=== PATIENT | male | born 1975 | race Caucasian/White ===

== ENCOUNTER 2020-06-11 14:05 | Emergency (ER) | payer MEDICARE, MEDICAID, SELFPAY ==
[2020-06-11 14:39] VITALS: BP 185/103; PULSE 110; RESP 23; TEMP 37.1; O2SAT 68; BMI 22.5
[2020-06-11 14:43] VITALS: O2SAT 95
--- NOTE | 2020-06-11 15:08 | XR_ITS ---
EXAMINATION: XR CHEST CLINICAL INFORMATION: Hypoxia COMPARISON: Chest radiographs 02/06/2020, 02/05/2020, 02/04/2020 TECHNIQUE: Portable upright AP view of the chest was obtained. FINDINGS: There are low lung volumes. Mild elevation right hemidiaphragm similar to prior studies. There are diffuse airspace opacities throughout the left lung. No lobar or segmental airspace consolidation or groundglass opacities noted on the right. The costophrenic sulci are clear. No effusion. The heart is normal in size. The vascularity is normal. XR/XR chest 1V IMPRESSION: Diffuse airspace opacities left lung. No effusion.
--- NOTE | 2020-06-11 15:08 | ECG_ITS ---
Test Reason : NAUSEA Blood Pressure : / mmHG Vent. Rate : 109 BPM Atrial Rate : 109 BPM P-R Int : 124 ms QRS Dur : 076 ms QT Int : 374 ms P-R-T Axes : 052 043 204 degrees QTc Int : 503 ms Sinus tachycardia Possible Left atrial enlargement Left ventricular hypertrophy with repolarization abnormality Abnormal ECG When compared with ECG of 30-JAN-2020 14:03, ST now depressed in Lateral leads T wave inversion less evident in Lateral leads Referred By: Deena Hamilton Electronically Signed By:CATALINO MILLER
--- NOTE | 2020-06-11 15:10 | CT_ITS ---
EXAMINATION: CT HEAD WITHOUT CONTRAST CLINICAL INFORMATION: Slurred speech COMPARISON: None CT brain 01/30/2020 TECHNIQUE: Contiguous axial imaging was performed from the skull base to vertex without intravenous administration of contrast. This CT examination was performed using dose optimization techniques as appropriate, variously including the following: *Automated exposure control *Adjustment of mA and/or kV according to patient size (this includes techniques or standardized protocols for targeted exams where dose is matched to indication/reason for exam; i.e. extremities or head) *Use of iterative reconstruction technique DLP: 1721 mGy-cm FINDINGS: There is no acute intra-axial, extra axial bleed, masses or midline shift. There is no acute infarction in evolution. There is an left basal ganglia and right anterior limb internal capsule lacunar infarcts. The right anterior limb internal capsule infarct appears new compared to last study. There is edema or mass effect. Ribeiro to white matter differentiation is well preserved. No extra-axial fluid collections are identified. The ventricles are normal in size. There is no abnormal attenuation within the brain parenchyma. The osseous structures and soft tissues are normal. The mastoid air cells and visualized portions of the paranasal sinuses are well aerated. CT/CT head/brain wo con IMPRESSION: No acute intracranial process seen. There is a lacunar infarct left basal ganglia, unchanged to previous study. There is a lacunar infarct in the anterior limb right internal capsule which is new since the last study.
[2020-06-11 15:16] LABS: Glucose, Whole Blood 561 mg/dL (60-115)
--- NOTE | 2020-06-11 15:19 | ED_ITS ---
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 He also reports abdominal soreness from vomiting. He has been unable to eat so he has not been taking his insulin. He states he has not taken his other medications in some time (?months). He is a poor historian. He had an appointment yesterday for his chronic pain. He denies fever, chills, urinary symptoms, cough, SOB, M[place] or chest pain. No sick contacts. On arrival to the ER he was found to have an SpO2 68% on room air (AAO X3 but speech slurred) and glucose 500's. <JAVIER Hernandez - Last Filed: 06/11/20 19:55> MD elicited complaint: nausea and vomiting <JAVIER Hernandez Last Filed: 06/11/20 19:55> Pertinent past history: other (DM) <JAVIER Hernandez Last Filed: 06/11/20 19:55> Onset (ago): day(s) (2) <JAVIER Hernandez Last Filed: 06/11/20 19:55> Description of vomiting: food contents <JAVIER Hernandez Last Filed: 06/11/20 19:55> Associated nausea: Yes <JAVIER Hernandez - Last Filed: 06/11/20 19:55> Associated abdominal pain: Yes <JAVIER Hernandez - Last Filed: 06/11/20 19:55> Location of pain: diffuse <JAVIER Hernandez - Last Filed: 06/11/20 19:55> Radiation: diffuse <JAVIER Hernandez - Last Filed: 06/11/20 19:55> Pain consistency: intermittent <JAVIER Hernandez - Last Filed: 06/11/20 19:55> Severity: moderate <JAVIER Hernandez - Last Filed: 06/11/20 19:55> Quality: aching <JAVIER Hernandez - Last Filed: 06/11/20 19:55> Exacerbating factors: vomiting <JAVIER Hernandez Last Filed: 06/11/20 19:55> Associated symptoms: headaches, loss of appetite, malaise, nausea/vomiting and weakness <JAVIER Hernandez Last Filed: 06/11/20 19:55> Related Data Home medications: Home Medications Medication Instructions Recorded Confirmed gabapentin 600 mg tablet 600 mg PO TID tab 02/26/20 06/11/20 pen needle, diabetic 32 gauge x #50 ea 02/26/20 06/10/20 sumatriptan succinate 50 mg tablet 50 mg PO DAILY PRN tab 02/26/20 06/11/20 atorvastatin 40 mg tablet 40 mg PO DAILY 06/10/20 06/11/20 duloxetine 30 mg capsule,delayed 30 mg PO DAILY 06/10/20 06/11/20 release fenofibrate nanocrystallized 145 145 mg PO DAILY 06/10/20 06/11/20 mg tablet insulin regular hum U-500 conc 180 unit SUBCUT BEDTIME 06/11/20 06/11/20 [Humulin R U-500 (Conc) Kwikpen] insulin regular hum U-500 conc 210 unit SUBCUT DAILY 06/11/20 06/11/20 [Humulin R U-500 (Conc) Kwikpen] zolpidem 10 mg PO BEDTIME 06/11/20 06/11/20 Previous Rx's Medication Instructions Recorded hydrochlorothiazide 25 mg tablet 25 mg PO DAILY #90 tab 04/07/20 carvedilol 12.5 mg tablet 12.5 mg PO BID #180 tab 05/27/20 cyclobenzaprine 5 mg tablet 5 mg PO TID PRN #60 tab 05/27/20 oxycodone 5 mg tablet 5 mg PO Q6H PRN #120 tab 06/10/20 <JAVIER Hernandez - Last Filed: 06/11/20 19:55> Allergies/Adverse reactions: Allergies Allergy/AdvReac Type Severity Reaction Status Date / Time levofloxacin [From LEVAQUIN] Allergy Unknown REDNESS,ITC Verified 06/10/20 10:30 HY,SWOLLEN <JAVIER Hernandez - Last Filed: 06/11/20 19:55> Review of Systems Review of Systems: Constitutional: No Fever, No Chills ENT/Mouth: No sore throat, No Rhinorrhea, No Swallowing Difficulty Eyes: No Eye Pain, No Swelling, No Redness Cardiovascular: No Chest Pain, No SOB, No Orthopnea, No Edema Respiratory: + Cough, No Sputum, No Wheezing, No dyspnea Gastrointestinal: + Nausea, + Vomiting, No Diarrhea, + abdominal Pain, No Hematochezia, No Melena Genitourinary: No Dysuria, No Urinary Frequency, No Hematuria Musculoskeletal: + joint pain (chronic), + Myalgias (chronic) Skin: No Skin Lesions, No rash Neuro: No Weakness, No Numbness, No Dizziness, + Headache (chronic) Psych: No Anxiety/Panic, No Depression Heme/Lymph: No Bruising, No Lymphadenopathy Endocrine: No Polyuria, No Polydipsia <JAVIER Hernandez - Last Filed: 06/11/20 19:55> Gastrointestinal: Gastrointestinal: Reports nausea <JAVIER Hernandez - Last Filed: 06/11/20 19:55> [facility] Past Medical History Attestation statement: The following information was validated with the patient. <JAVIER Hernandez - Last Filed: 06/11/20 19:55> Source: old records reviewed <JAVIER Hernandez - Last Filed: 06/11/20 19:55> Medical History: Medical History (Updated 06/11/20 @ 19:16 by JAVIER Hernandez) Chronic pain CKD (chronic kidney disease) HTN (hypertension) IDDM (insulin dependent diabetes mellitus) Osteomyelitis PVD (peripheral vascular disease) <JAVIER Hernandez - Last Filed: 06/11/20 19:55> Surgical History: Surgical History Status post below knee amputation of right lower extremity Status post laser cataract surgery of right eye <JAVIER Hernandez - Last Filed: 06/11/20 19:55> Family History Family History: Family History Father Diabetes Mother Diabetes <JAVIER Hernandez - Last Filed: 06/11/20 19:55> Social History Social History: Social History Alcohol intake: never Smoking Status: Never smoker Smoked in Last 30 Days: No Use of substances other than those prescribed or required for medical reasons: No Advance Directives: No Advance Directives Information Provided: No <JAVIER Hernandez - Last Filed: 06/11/20 19:55> Physical Exam Vital Signs: Vital Signs: Last Vital Signs Temp 98.5 F 06/11/20 16:40 Pulse 116 H 06/11/20 18:00 Resp 26 H 06/11/20 16:40 BP 155/76 H 06/11/20 19:37 Pulse Ox 91 L 06/11/20 16:40 Body Mass Index 22.5 Appearance: Alert. Oriented X3. No acute distress. Head: scalp with diffuse thickened yellowish plaques Eyes: Pupils equal, round and reactive to light. ENT: Pharynx with dry mucus membranes: Neck: Normal inspection. Neck supple. CVS: tachycardic, regular rhythm. Pulses normal. Respiratory: No respiratory distress. Breath sounds course throughout left lung. Abdomen: Soft with mild diffuse tenderness. +BS x4 Skin: Skin warm and dry. Normal skin color. Normal skin turgor. No rashes. Extremities: s/p right BKA, no LE edema on the left lower extremity Neuro: Oriented X 3. No motor deficit. No sensory deficit. <JAVIER Hernandez - Last Filed: 06/11/20 19:55> Vital Signs: Last Vital Signs Temp 98.5 F 06/11/20 16:40 Pulse 116 H 06/11/20 18:00 Resp 26 H 06/11/20 16:40 BP 155/76 H 06/11/20 19:37 Pulse Ox 91 L 06/11/20 16:40 Body Mass Index 22.5 <Nissa Donis MD - Last Filed: 06/11/20 22:37> Course Course Course Narrative: 44 y/o male with multiple co-morbidities presenting with N/V and hyperglycemia, found to be profoundly hypoxic on arrival with slurred speech. Neuro exam is otherwise non-focal so this is likely directly related to hypoxia. Now improved. He denies respiratory complaints. He was placed on 3L NC with improvement in SpO2 94%. HR 110. He appears clinically dry. Glucose 500's. Will give 1L IVF and SC insulin now. Possible DKA given insulin non-compliance. Will get cultures, CXR, EKG. No nausea at this time. Will require admission. <JAVIER Hernandez - Last Filed: 06/11/20 19:55> 22:28 this is a 44-year-old male with history of diabetes presented today with nausea vomiting diarrhea seen initially by Dr. Camargo/JAVIER Shaffer, patient found to be in DKA with anion gap, patient also found to have a pneumonia beating sirs criteria. Patient was seen and evaluated in the emergency department by Dr. multani from ICU and because the scheme acute change on the EKG and elevated troponin he advised to be transferred to CCU at [facility], after multiple phone calls with (food inspector at [facility]), and (follow-up ICU at [facility]), and patient was accepted to intermediate care with Cardiology consult for possible cardiac catheterization (not emergently but could be urgently). Patient was given antibiotic, started on heparin drip, insulin drip. And will be transferred to [facility]. DKA is improving anion gap is closing and bicarb is normalizing. <Nissa Donis MD - Last Filed: 06/11/20 22:37> Reevaluation(s) Reevaluation #1: EKG with new ischemic changes. Patient denies chest pain or SOB at this time. No diaphoresis. Mild tachycardia persists. HR low 100's. Lab work pending. Upon review he had normal ECHO in Jan 2020. ASA ordered. CXR shows diffuse patchy opacities throughout the left lung. ?aspiration. Given profound hypoxia will treat with Zosyn and get CT scan for further evaluation. <JAVIER Hernandez - Last Filed: 06/11/20 19:55> Reevaluation #2: Received critical results of troponin 2006, glucose 624, HUNG on CKD with BUN/Cr 38/2.5 (baseline 56/1.84) as well as lactic acid of 2.9, with bicarb of 20 and anion gap of 25. VBG showing pH 7.33. Small acetone present consistent with mild DKA. He has been given 12 units of SQ insulin and 1L IVF infusing. Repeat glucose decreased to 480. Will hold off on IV insulin for now and trend glucose closely. Dr. Otto has been TT at 17:19, awaiting recs. <JAVIER Hernandez - Last Filed: 06/11/20 19:55> Reevaluation #3: 17:40 - Dr. Otto recommending ASA, heparin gtt. Orders placed. BP 190/100 with HR 100's, IV lopressor ordered. <JAVIER Hernandez - Last Filed: 06/11/20 19:55> Additional Reevaluation(s): Case was discussed with Dr. Multani at 17:55 pm - he came to the bedside and evaluated the patient. Limited ECHO was performed without any obvious wall motion abnormalities present however unable to visualize the lateral wall. Patient's ischemic changes are consistent with lateral ischemia. Given the high concern for acute ischemia, patient's medical complexity and multiple risk factors Dr. Multani is recommending transfer to [facility] for possible cardiac catheterization. Transfer line called at 6:30pm. Spoke with Dr. Soto Cardiology from [facility] - he is recommending speaking with MICU. Glucose slowly improving- now 465. Will give additional 8 units SQ insulin. Repeat chemistry and troponin ordered as well as CK per Dr. Soto recs. 19:45 - continue to await MICU call back, going on 45 minutes. Transfer line called 2x and page resent. EKG repeated and unchanged. <JAVIER Hernandez - Last Filed: 06/11/20 19:55> Consultations Consultation #1: Dr. Otto (Cardiology) 17:20 pm <JAVIER Hernandez - Last Filed: 06/11/20 19:55> Consultation #2: Dr. Multani (ICU/Cardiology) 6pm. <JAVIER Hernandez - Last Filed: 06/11/20 19:55> MDM - Nausea/Vomiting/Diarrhea Lab Data Result diagrams: : 06/11/20 16:31 06/11/20 19:53 <JAVIER Hernandez - Last Filed: 06/11/20 19:55> Labs: Lab Results 06/11/20 06/11/20 06/11/20 Range/Units 15:13 16:30 16:30 WBC (4.8-10.8) X10*3/uL RBC (4.60-5.80) X10*6/uL Hgb (14.0-18.0) g/dl Hct (42-52) % MCV (80-98) fL MCH (27.0-33.0) pg MCHC (31.0-36.0) g/dl RDW (11.0-16.0) % Plt Count (160-400) X10*3/uL MPV (9.4-12.4) fL Immature Gran % (Auto) (0.0-0.4) % Neut % (Auto) (45-73) % Lymph % (Auto) (20-40) % [place] % (Auto) (2-11) % Eos % (Auto) (0-4) % Baso % (Auto) (0-2) % Lymph # (Auto) (1.2-4.9) X10*3/uL [place] # (Auto) (0.1-1.2) X10*3/uL Eos # (Auto) (0.0-0.4) X10*3/uL Baso # (Auto) (0.0-0.2) X10*3/uL Abs Immat Gran (auto) (0.00-0.03) X10*3/uL Absolute Neuts (auto) (2.0-8.3) X10*3/uL Absolute Nucleated RBC (0.0-0.012) X10*3/uL Nucleated RBC % (auto) (0.0-0.2) /100WBC PT (10.8-13.0) SEC INR (0.9-1.1) APTT (24.1-38.0) SEC Hold Blue Top VBG pH 7.33 (7.32-7.43) VBG pCO2 42 mmHg VBG pO2 45 mmHg VBG HCO3 22 mmol/L VBG O2 Saturation 71.0 % VBG Base Excess -2.9 mmol/L Sodium (135-145) mmol/L Potassium (3.3-5.1) mmol/l Chloride (96-108) mmol/L Carbon Dioxide (22-29) mmol/L Anion Gap (12-20) BUN (9-16) mg/dL Creatinine (0.5-1.4) mg/dL Estim Creat Clear Calc Estimated GFR POC Glucose 561 H* (60-115) mg/dL Random Glucose (60-115) mg/dL Lactic Acid (0.5-2.0) mmol/L Lactic Acid Fup @ 2Hr (0.5-2.0) mmol/L Calcium (8.4-10.2) mg/dL Magnesium (1.6-2.6) mg/dL Total Bilirubin (0.0-1.0) mg/dL Direct Bilirubin (0.0-0.5) mg/dL AST (5-37) U/L ALT (0-40) U/L Alkaline Phosphatase (39-117) U/L Total Creatine Kinase (38-174) U/L Troponin I High Sens (<3.5-35.0) ng/L C-Reactive Protein (< or = 0.50) mg/dL B-Natriuretic Peptide (<100) pg/mL Total Protein (6.5-8.0) g/dL Albumin (3.5-5.0) g/dL Lipase (8-78) U/L Procalcitonin ng/mL Urine Color Urine Appearance Urine pH (5.0-8.0) Ur Specific [place] (1.005-1.025) Urine Protein (NEG-TRACE) MG/DL Urine Glucose (UA) (NEG) MG/DL Urine Ketones (NEG) MG/DL Urine Blood (NEG) Urine Nitrite (NEG) Ur Leukocyte Esterase (NEG) Urine RBC (0) /HPF Urine WBC (0-4) /HPF Ur Squamous Epith Cells /LPF Urine Bacteria /LPF Hyaline Casts /LPF Granular Casts /LPF Acetone, Qual Small H (Negative) Coronavirus (PCR) (Negative) Influenza Type A (PCR) (Negative) Influenza Type B (PCR) (Negative) RSV RNA Qual (PCR) (Negative) 06/11/20 06/11/20 06/11/20 Range/Units 16:31 16:31 16:31 WBC 14.2 H (4.8-10.8) X10*3/uL RBC 4.53 L (4.60-5.80) X10*6/uL Hgb 12.9 L (14.0-18.0) g/dl Hct 38.8 L (42-52) % MCV 85.7 (80-98) fL MCH 28.5 (27.0-33.0) pg MCHC 33.2 (31.0-36.0) g/dl RDW 14.1 (11.0-16.0) % Plt Count 274 (160-400) X10*3/uL MPV 10.4 (9.4-12.4) fL Immature Gran % (Auto) 1.2 H (0.0-0.4) % Neut % (Auto) 83.9 H (45-73) % Lymph % (Auto) 9.6 L (20-40) % [place] % (Auto) 4.9 (2-11) % Eos % (Auto) 0.0 (0-4) % Baso % (Auto) 0.4 (0-2) % Lymph # (Auto) 1.4 (1.2-4.9) X10*3/uL [place] # (Auto) 0.7 (0.1-1.2) X10*3/uL Eos # (Auto) 0.0 (0.0-0.4) X10*3/uL Baso # (Auto) 0.1 (0.0-0.2) X10*3/uL Abs Immat Gran (auto) 0.17 H (0.00-0.03) X10*3/uL Absolute Neuts (auto) 11.9 H (2.0-8.3) X10*3/uL Absolute Nucleated RBC 0.000 (0.0-0.012) X10*3/uL Nucleated RBC % (auto) 0.0 (0.0-0.2) /100WBC PT 13.5 H (10.8-13.0) SEC INR 1.1 (0.9-1.1) APTT 35.6 (24.1-38.0) SEC Hold Blue Top SEE NOTE VBG pH (7.32-7.43) VBG pCO2 mmHg VBG pO2 mmHg VBG HCO3 mmol/L VBG O2 Saturation % VBG Base Excess mmol/L Sodium 134 L (135-145) mmol/L Potassium 4.6 (3.3-5.1) mmol/l Chloride 94 L (96-108) mmol/L Carbon Dioxide 20 L (22-29) mmol/L Anion Gap 25 H (12-20) BUN 38 H (9-16) mg/dL Creatinine 2.50 H (0.5-1.4) mg/dL Estim Creat Clear Calc 44.4 Estimated GFR 28 POC Glucose (60-115) mg/dL Random Glucose 624 H* (60-115) mg/dL Lactic Acid (0.5-2.0) mmol/L Lactic Acid Fup @ 2Hr (0.5-2.0) mmol/L Calcium 8.0 L (8.4-10.2) mg/dL Magnesium 1.6 (1.6-2.6) mg/dL Total Bilirubin 0.6 (0.0-1.0) mg/dL Direct Bilirubin 0.3 (0.0-0.5) mg/dL AST 23 (5-37) U/L ALT 26 (0-40) U/L Alkaline Phosphatase 85 (39-117) U/L Total Creatine Kinase (38-174) U/L Troponin I High Sens (<3.5-35.0) ng/L C-Reactive Protein 25.46 H (< or = 0.50) mg/dL B-Natriuretic Peptide (<100) pg/mL Total Protein 6.3 L (6.5-8.0) g/dL Albumin 3.8 (3.5-5.0) g/dL Lipase 7 L (8-78) U/L Procalcitonin ng/mL Urine Color Urine Appearance Urine pH (5.0-8.0) Ur Specific [place] (1.005-1.025) Urine Protein (NEG-TRACE) MG/DL Urine Glucose (UA) (NEG) MG/DL Urine Ketones (NEG) MG/DL Urine Blood (NEG) Urine Nitrite (NEG) Ur Leukocyte Esterase (NEG) Urine RBC (0) /HPF Urine WBC (0-4) /HPF Ur Squamous Epith Cells /LPF Urine Bacteria /LPF Hyaline Casts /LPF Granular Casts /LPF Acetone, Qual (Negative) Coronavirus (PCR) (Negative) Influenza Type A (PCR) (Negative) Influenza Type B (PCR) (Negative) RSV RNA Qual (PCR) (Negative) 06/11/20 06/11/20 06/11/20 Range/Units 16:31 16:31 16:31 WBC (4.8-10.8) X10*3/uL RBC (4.60-5.80) X10*6/uL Hgb (14.0-18.0) g/dl Hct (42-52) % MCV (80-98) fL MCH (27.0-33.0) pg MCHC (31.0-36.0) g/dl RDW (11.0-16.0) % Plt Count (160-400) X10*3/uL MPV (9.4-12.4) fL Immature Gran % (Auto) (0.0-0.4) % Neut % (Auto) (45-73) % Lymph % (Auto) (20-40) % [place] % (Auto) (2-11) % Eos % (Auto) (0-4) % Baso % (Auto) (0-2) % Lymph # (Auto) (1.2-4.9) X10*3/uL [place] # (Auto) (0.1-1.2) X10*3/uL Eos # (Auto) (0.0-0.4) X10*3/uL Baso # (Auto) (0.0-0.2) X10*3/uL Abs Immat Gran (auto) (0.00-0.03) X10*3/uL Absolute Neuts (auto) (2.0-8.3) X10*3/uL Absolute Nucleated RBC (0.0-0.012) X10*3/uL Nucleated RBC % (auto) (0.0-0.2) /100WBC PT (10.8-13.0) SEC INR (0.9-1.1) APTT (24.1-38.0) SEC Hold Blue Top VBG pH (7.32-7.43) VBG pCO2 mmHg VBG pO2 mmHg VBG HCO3 mmol/L VBG O2 Saturation % VBG Base Excess mmol/L Sodium (135-145) mmol/L Potassium (3.3-5.1) mmol/l Chloride (96-108) mmol/L Carbon Dioxide (22-29) mmol/L Anion Gap (12-20) BUN (9-16) mg/dL Creatinine (0.5-1.4) mg/dL Estim Creat Clear Calc Estimated GFR POC Glucose (60-115) mg/dL Random Glucose (60-115) mg/dL Lactic Acid 2.9 H* (0.5-2.0) mmol/L Lactic Acid Fup @ 2Hr (0.5-2.0) mmol/L Calcium (8.4-10.2) mg/dL Magnesium (1.6-2.6) mg/dL Total Bilirubin (0.0-1.0) mg/dL Direct Bilirubin (0.0-0.5) mg/dL AST (5-37) U/L ALT (0-40) U/L Alkaline Phosphatase (39-117) U/L Total Creatine Kinase (38-174) U/L Troponin I High Sens 2007.4 H (<3.5-35.0) ng/L C-Reactive Protein (< or = 0.50) mg/dL B-Natriuretic Peptide 1045 H (<100) pg/mL Total Protein (6.5-8.0) g/dL Albumin (3.5-5.0) g/dL Lipase (8-78) U/L Procalcitonin ng/mL Urine Color Urine Appearance Urine pH (5.0-8.0) Ur Specific [place] (1.005-1.025) Urine Protein (NEG-TRACE) MG/DL Urine Glucose (UA) (NEG) MG/DL Urine Ketones (NEG) MG/DL Urine Blood (NEG) Urine Nitrite (NEG) Ur Leukocyte Esterase (NEG) Urine RBC (0) /HPF Urine WBC (0-4) /HPF Ur Squamous Epith Cells /LPF Urine Bacteria /LPF Hyaline Casts /LPF Granular Casts /LPF Acetone, Qual (Negative) Coronavirus (PCR) (Negative) Influenza Type A (PCR) (Negative) Influenza Type B (PCR) (Negative) RSV RNA Qual (PCR) (Negative) 06/11/20 06/11/20 06/11/20 Range/Units 16:31 16:48 16:48 WBC (4.8-10.8) X10*3/uL RBC (4.60-5.80) X10*6/uL Hgb (14.0-18.0) g/dl Hct (42-52) % MCV (80-98) fL MCH (27.0-33.0) pg MCHC (31.0-36.0) g/dl RDW (11.0-16.0) % Plt Count (160-400) X10*3/uL MPV (9.4-12.4) fL Immature Gran % (Auto) (0.0-0.4) % Neut % (Auto) (45-73) % Lymph % (Auto) (20-40) % [place] % (Auto) (2-11) % Eos % (Auto) (0-4) % Baso % (Auto) (0-2) % Lymph # (Auto) (1.2-4.9) X10*3/uL [place] # (Auto) (0.1-1.2) X10*3/uL Eos # (Auto) (0.0-0.4) X10*3/uL Baso # (Auto) (0.0-0.2) X10*3/uL Abs Immat Gran (auto) (0.00-0.03) X10*3/uL Absolute Neuts (auto) (2.0-8.3) X10*3/uL Absolute Nucleated RBC (0.0-0.012) X10*3/uL Nucleated RBC % (auto) (0.0-0.2) /100WBC PT (10.8-13.0) SEC INR (0.9-1.1) APTT (24.1-38.0) SEC Hold Blue Top VBG pH (7.32-7.43) VBG pCO2 mmHg VBG pO2 mmHg VBG HCO3 mmol/L VBG O2 Saturation % VBG Base Excess mmol/L Sodium (135-145) mmol/L Potassium (3.3-5.1) mmol/l Chloride (96-108) mmol/L Carbon Dioxide (22-29) mmol/L Anion Gap (12-20) BUN (9-16) mg/dL Creatinine (0.5-1.4) mg/dL Estim Creat Clear Calc Estimated GFR POC Glucose (60-115) mg/dL Random Glucose (60-115) mg/dL Lactic Acid (0.5-2.0) mmol/L Lactic Acid Fup @ 2Hr (0.5-2.0) mmol/L Calcium (8.4-10.2) mg/dL Magnesium (1.6-2.6) mg/dL Total Bilirubin (0.0-1.0) mg/dL Direct Bilirubin (0.0-0.5) mg/dL AST (5-37) U/L ALT (0-40) U/L Alkaline Phosphatase (39-117) U/L Total Creatine Kinase (38-174) U/L Troponin I High Sens (<3.5-35.0) ng/L C-Reactive Protein (< or = 0.50) mg/dL B-Natriuretic Peptide (<100) pg/mL Total Protein (6.5-8.0) g/dL Albumin (3.5-5.0) g/dL Lipase (8-78) U/L Procalcitonin 1.34 ng/mL Urine Color YELLOW Urine Appearance CLEAR Urine pH 5.5 (5.0-8.0) Ur Specific [place] 1.025 (1.005-1.025) Urine Protein 3+ H (NEG-TRACE) MG/DL Urine Glucose (UA) >=1000 H (NEG) MG/DL Urine Ketones 15 (NEG) MG/DL Urine Blood 2+ H (NEG) Urine Nitrite NEG (NEG) Ur Leukocyte Esterase NEG (NEG) Urine RBC 1-4 (0) /HPF Urine WBC 0-2 (0-4) /HPF Ur Squamous Epith Cells TRACE /LPF Urine Bacteria NONE /LPF Hyaline Casts 0-2 /LPF Granular Casts 0-2 /LPF Acetone, Qual (Negative) Coronavirus (PCR) NEGATIVE (Negative) Influenza Type A (PCR) NEGATIVE (Negative) Influenza Type B (PCR) NEGATIVE (Negative) RSV RNA Qual (PCR) NEGATIVE (Negative) 06/11/20 06/11/20 06/11/20 Range/Units 17:25 18:35 19:53 WBC (4.8-10.8) X10*3/uL RBC (4.60-5.80) X10*6/uL Hgb (14.0-18.0) g/dl Hct (42-52) % MCV (80-98) fL MCH (27.0-33.0) pg MCHC (31.0-36.0) g/dl RDW (11.0-16.0) % Plt Count (160-400) X10*3/uL MPV (9.4-12.4) fL Immature Gran % (Auto) (0.0-0.4) % Neut % (Auto) (45-73) % Lymph % (Auto) (20-40) % [place] % (Auto) (2-11) % Eos % (Auto) (0-4) % Baso % (Auto) (0-2) % Lymph # (Auto) (1.2-4.9) X10*3/uL [place] # (Auto) (0.1-1.2) X10*3/uL Eos # (Auto) (0.0-0.4) X10*3/uL Baso # (Auto) (0.0-0.2) X10*3/uL Abs Immat Gran (auto) (0.00-0.03) X10*3/uL Absolute Neuts (auto) (2.0-8.3) X10*3/uL Absolute Nucleated RBC (0.0-0.012) X10*3/uL Nucleated RBC % (auto) (0.0-0.2) /100WBC PT (10.8-13.0) SEC INR (0.9-1.1) APTT (24.1-38.0) SEC Hold Blue Top VBG pH (7.32-7.43) VBG pCO2 mmHg VBG pO2 mmHg VBG HCO3 mmol/L VBG O2 Saturation % VBG Base Excess mmol/L Sodium (135-145) mmol/L Potassium (3.3-5.1) mmol/l Chloride (96-108) mmol/L Carbon Dioxide (22-29) mmol/L Anion Gap (12-20) BUN (9-16) mg/dL Creatinine (0.5-1.4) mg/dL Estim Creat Clear Calc Estimated GFR POC Glucose 485 H* 467 H* (60-115) mg/dL Random Glucose (60-115) mg/dL Lactic Acid (0.5-2.0) mmol/L Lactic Acid Fup @ 2Hr 2.9 H* (0.5-2.0) mmol/L Calcium (8.4-10.2) mg/dL Magnesium (1.6-2.6) mg/dL Total Bilirubin (0.0-1.0) mg/dL Direct Bilirubin (0.0-0.5) mg/dL AST (5-37) U/L ALT (0-40) U/L Alkaline Phosphatase (39-117) U/L Total Creatine Kinase (38-174) U/L Troponin I High Sens (<3.5-35.0) ng/L C-Reactive Protein (< or = 0.50) mg/dL B-Natriuretic Peptide (<100) pg/mL Total Protein (6.5-8.0) g/dL Albumin (3.5-5.0) g/dL Lipase (8-78) U/L Procalcitonin ng/mL Urine Color Urine Appearance Urine pH (5.0-8.0) Ur Specific [place] (1.005-1.025) Urine Protein (NEG-TRACE) MG/DL Urine Glucose (UA) (NEG) MG/DL Urine Ketones (NEG) MG/DL Urine Blood (NEG) Urine Nitrite (NEG) Ur Leukocyte Esterase (NEG) Urine RBC (0) /HPF Urine WBC (0-4) /HPF Ur Squamous Epith Cells /LPF Urine Bacteria /LPF Hyaline Casts /LPF Granular Casts /LPF Acetone, Qual (Negative) Coronavirus (PCR) (Negative) Influenza Type A (PCR) (Negative) Influenza Type B (PCR) (Negative) RSV RNA Qual (PCR) (Negative) 06/11/20 06/11/20 06/11/20 Range/Units 19:53 19:53 22:21 WBC (4.8-10.8) X10*3/uL RBC (4.60-5.80) X10*6/uL Hgb (14.0-18.0) g/dl Hct (42-52) % MCV (80-98) fL MCH (27.0-33.0) pg MCHC (31.0-36.0) g/dl RDW (11.0-16.0) % Plt Count (160-400) X10*3/uL MPV (9.4-12.4) fL Immature Gran % (Auto) (0.0-0.4) % Neut % (Auto) (45-73) % Lymph % (Auto) (20-40) % [place] % (Auto) (2-11) % Eos % (Auto) (0-4) % Baso % (Auto) (0-2) % Lymph # (Auto) (1.2-4.9) X10*3/uL [place] # (Auto) (0.1-1.2) X10*3/uL Eos # (Auto) (0.0-0.4) X10*3/uL Baso # (Auto) (0.0-0.2) X10*3/uL Abs Immat Gran (auto) (0.00-0.03) X10*3/uL Absolute Neuts (auto) (2.0-8.3) X10*3/uL Absolute Nucleated RBC (0.0-0.012) X10*3/uL Nucleated RBC % (auto) (0.0-0.2) /100WBC PT (10.8-13.0) SEC INR (0.9-1.1) APTT (24.1-38.0) SEC Hold Blue Top VBG pH (7.32-7.43) VBG pCO2 mmHg VBG pO2 mmHg VBG HCO3 mmol/L VBG O2 Saturation % VBG Base Excess mmol/L Sodium 136 (135-145) mmol/L Potassium 4.0 (3.3-5.1) mmol/l Chloride 97 (96-108) mmol/L Carbon Dioxide 24 (22-29) mmol/L Anion Gap 19 (12-20) BUN 36 H (9-16) mg/dL Creatinine 2.32 H (0.5-1.4) mg/dL Estim Creat Clear Calc 47.9 Estimated GFR 31 POC Glucose 409 H* (60-115) mg/dL Random Glucose 457 H* (60-115) mg/dL Lactic Acid (0.5-2.0) mmol/L Lactic Acid Fup @ 2Hr (0.5-2.0) mmol/L Calcium 7.4 L D (8.4-10.2) mg/dL Magnesium (1.6-2.6) mg/dL Total Bilirubin (0.0-1.0) mg/dL Direct Bilirubin (0.0-0.5) mg/dL AST (5-37) U/L ALT (0-40) U/L Alkaline Phosphatase (39-117) U/L Total Creatine Kinase 135 (38-174) U/L Troponin I High Sens 2322.8 H (<3.5-35.0) ng/L C-Reactive Protein (< or = 0.50) mg/dL B-Natriuretic Peptide (<100) pg/mL Total Protein (6.5-8.0) g/dL Albumin (3.5-5.0) g/dL Lipase (8-78) U/L Procalcitonin ng/mL Urine Color Urine Appearance Urine pH (5.0-8.0) Ur Specific [place] (1.005-1.025) Urine Protein (NEG-TRACE) MG/DL Urine Glucose (UA) (NEG) MG/DL Urine Ketones (NEG) MG/DL Urine Blood (NEG) Urine Nitrite (NEG) Ur Leukocyte Esterase (NEG) Urine RBC (0) /HPF Urine WBC (0-4) /HPF Ur Squamous Epith Cells /LPF Urine Bacteria /LPF Hyaline Casts /LPF Granular Casts /LPF Acetone, Qual (Negative) Coronavirus (PCR) (Negative) Influenza Type A (PCR) (Negative) Influenza Type B (PCR) (Negative) RSV RNA Qual (PCR) (Negative) <JAVIER Hernandez - Last Filed: 06/11/20 19:55> Lab Results 06/11/20 06/11/20 06/11/20 Range/Units 15:13 16:30 16:30 WBC (4.8-10.8) X10*3/uL RBC (4.60-5.80) X10*6/uL Hgb (14.0-18.0) g/dl Hct (42-52) % MCV (80-98) fL MCH (27.0-33.0) pg MCHC (31.0-36.0) g/dl RDW (11.0-16.0) % Plt Count (160-400) X10*3/uL MPV (9.4-12.4) fL Immature Gran % (Auto) (0.0-0.4) % Neut % (Auto) (45-73) % Lymph % (Auto) (20-40) % [place] % (Auto) (2-11) % Eos % (Auto) (0-4) % Baso % (Auto) (0-2) % Lymph # (Auto) (1.2-4.9) X10*3/uL [place] # (Auto) (0.1-1.2) X10*3/uL Eos # (Auto) (0.0-0.4) X10*3/uL Baso # (Auto) (0.0-0.2) X10*3/uL Abs Immat Gran (auto) (0.00-0.03) X10*3/uL Absolute Neuts (auto) (2.0-8.3) X10*3/uL Absolute Nucleated RBC (0.0-0.012) X10*3/uL Nucleated RBC % (auto) (0.0-0.2) /100WBC PT (10.8-13.0) SEC INR (0.9-1.1) APTT (24.1-38.0) SEC Hold Blue Top VBG pH 7.33 (7.32-7.43) VBG pCO2 42 mmHg VBG pO2 45 mmHg VBG HCO3 22 mmol/L VBG O2 Saturation 71.0 % VBG Base Excess -2.9 mmol/L Sodium (135-145) mmol/L Potassium (3.3-5.1) mmol/l Chloride (96-108) mmol/L Carbon Dioxide (22-29) mmol/L Anion Gap (12-20) BUN (9-16) mg/dL Creatinine (0.5-1.4) mg/dL Estim Creat Clear Calc Estimated GFR POC Glucose 561 H* (60-115) mg/dL Random Glucose (60-115) mg/dL Lactic Acid (0.5-2.0) mmol/L Lactic Acid Fup @ 2Hr (0.5-2.0) mmol/L Calcium (8.4-10.2) mg/dL Magnesium (1.6-2.6) mg/dL Total Bilirubin (0.0-1.0) mg/dL Direct Bilirubin (0.0-0.5) mg/dL AST (5-37) U/L ALT (0-40) U/L Alkaline Phosphatase (39-117) U/L Total Creatine Kinase (38-174) U/L Troponin I High Sens (<3.5-35.0) ng/L C-Reactive Protein (< or = 0.50) mg/dL B-Natriuretic Peptide (<100) pg/mL Total Protein (6.5-8.0) g/dL Albumin (3.5-5.0) g/dL Lipase (8-78) U/L Procalcitonin ng/mL Urine Color Urine Appearance Urine pH (5.0-8.0) Ur Specific [place] (1.005-1.025) Urine Protein (NEG-TRACE) MG/DL Urine Glucose (UA) (NEG) MG/DL Urine Ketones (NEG) MG/DL Urine Blood (NEG) Urine Nitrite (NEG) Ur Leukocyte Esterase (NEG) Urine RBC (0) /HPF Urine WBC (0-4) /HPF Ur Squamous Epith Cells /LPF Urine Bacteria /LPF Hyaline Casts /LPF Granular Casts /LPF Acetone, Qual Small H (Negative) Coronavirus (PCR) (Negative) Influenza Type A (PCR) (Negative) Influenza Type B (PCR) (Negative) RSV RNA Qual (PCR) (Negative) 06/11/20 06/11/20 06/11/20 Range/Units 16:31 16:31 16:31 WBC 14.2 H (4.8-10.8) X10*3/uL RBC 4.53 L (4.60-5.80) X10*6/uL Hgb 12.9 L (14.0-18.0) g/dl Hct 38.8 L (42-52) % MCV 85.7 (80-98) fL MCH 28.5 (27.0-33.0) pg MCHC 33.2 (31.0-36.0) g/dl RDW 14.1 (11.0-16.0) % Plt Count 274 (160-400) X10*3/uL MPV 10.4 (9.4-12.4) fL Immature Gran % (Auto) 1.2 H (0.0-0.4) % Neut % (Auto) 83.9 H (45-73) % Lymph % (Auto) 9.6 L (20-40) % [place] % (Auto) 4.9 (2-11) % Eos % (Auto) 0.0 (0-4) % Baso % (Auto) 0.4 (0-2) % Lymph # (Auto) 1.4 (1.2-4.9) X10*3/uL [place] # (Auto) 0.7 (0.1-1.2) X10*3/uL Eos # (Auto) 0.0 (0.0-0.4) X10*3/uL Baso # (Auto) 0.1 (0.0-0.2) X10*3/uL Abs Immat Gran (auto) 0.17 H (0.00-0.03) X10*3/uL Absolute Neuts (auto) 11.9 H (2.0-8.3) X10*3/uL Absolute Nucleated RBC 0.000 (0.0-0.012) X10*3/uL Nucleated RBC % (auto) 0.0 (0.0-0.2) /100WBC PT 13.5 H (10.8-13.0) SEC INR 1.1 (0.9-1.1) APTT 35.6 (24.1-38.0) SEC Hold Blue Top SEE NOTE VBG pH (7.32-7.43) VBG pCO2 mmHg VBG pO2 mmHg VBG HCO3 mmol/L VBG O2 Saturation % VBG Base Excess mmol/L Sodium 134 L (135-145) mmol/L Potassium 4.6 (3.3-5.1) mmol/l Chloride 94 L (96-108) mmol/L Carbon Dioxide 20 L (22-29) mmol/L Anion Gap 25 H (12-20) BUN 38 H (9-16) mg/dL Creatinine 2.50 H (0.5-1.4) mg/dL Estim Creat Clear Calc 44.4 Estimated GFR 28 POC Glucose (60-115) mg/dL Random Glucose 624 H* (60-115) mg/dL Lactic Acid (0.5-2.0) mmol/L Lactic Acid Fup @ 2Hr (0.5-2.0) mmol/L Calcium 8.0 L (8.4-10.2) mg/dL Magnesium 1.6 (1.6-2.6) mg/dL Total Bilirubin 0.6 (0.0-1.0) mg/dL Direct Bilirubin 0.3 (0.0-0.5) mg/dL AST 23 (5-37) U/L ALT 26 (0-40) U/L Alkaline Phosphatase 85 (39-117) U/L Total Creatine Kinase (38-174) U/L Troponin I High Sens (<3.5-35.0) ng/L C-Reactive Protein 25.46 H (< or = 0.50) mg/dL B-Natriuretic Peptide (<100) pg/mL Total Protein 6.3 L (6.5-8.0) g/dL Albumin 3.8 (3.5-5.0) g/dL Lipase 7 L (8-78) U/L Procalcitonin ng/mL Urine Color Urine Appearance Urine pH (5.0-8.0) Ur Specific [place] (1.005-1.025) Urine Protein (NEG-TRACE) MG/DL Urine Glucose (UA) (NEG) MG/DL Urine Ketones (NEG) MG/DL Urine Blood (NEG) Urine Nitrite (NEG) Ur Leukocyte Esterase (NEG) Urine RBC (0) /HPF Urine WBC (0-4) /HPF Ur Squamous Epith Cells /LPF Urine Bacteria /LPF Hyaline Casts /LPF Granular Casts /LPF Acetone, Qual (Negative) Coronavirus (PCR) (Negative) Influenza Type A (PCR) (Negative) Influenza Type B (PCR) (Negative) RSV RNA Qual (PCR) (Negative) 06/11/20 06/11/20 06/11/20 Range/Units 16:31 16:31 16:31 WBC (4.8-10.8) X10*3/uL RBC (4.60-5.80) X10*6/uL Hgb (14.0-18.0) g/dl Hct (42-52) % MCV (80-98) fL MCH (27.0-33.0) pg MCHC (31.0-36.0) g/dl RDW (11.0-16.0) % Plt Count (160-400) X10*3/uL MPV (9.4-12.4) fL Immature Gran % (Auto) (0.0-0.4) % Neut % (Auto) (45-73) % Lymph % (Auto) (20-40) % [place] % (Auto) (2-11) % Eos % (Auto) (0-4) % Baso % (Auto) (0-2) % Lymph # (Auto) (1.2-4.9) X10*3/uL [place] # (Auto) (0.1-1.2) X10*3/uL Eos # (Auto) (0.0-0.4) X10*3/uL Baso # (Auto) (0.0-0.2) X10*3/uL Abs Immat Gran (auto) (0.00-0.03) X10*3/uL Absolute Neuts (auto) (2.0-8.3) X10*3/uL Absolute Nucleated RBC (0.0-0.012) X10*3/uL Nucleated RBC % (auto) (0.0-0.2) /100WBC PT (10.8-13.0) SEC INR (0.9-1.1) APTT (24.1-38.0) SEC Hold Blue Top VBG pH (7.32-7.43) VBG pCO2 mmHg VBG pO2 mmHg VBG HCO3 mmol/L VBG O2 Saturation % VBG Base Excess mmol/L Sodium (135-145) mmol/L Potassium (3.3-5.1) mmol/l Chloride (96-108) mmol/L Carbon Dioxide (22-29) mmol/L Anion Gap (12-20) BUN (9-16) mg/dL Creatinine (0.5-1.4) mg/dL Estim Creat Clear Calc Estimated GFR POC Glucose (60-115) mg/dL Random Glucose (60-115) mg/dL Lactic Acid 2.9 H* (0.5-2.0) mmol/L Lactic Acid Fup @ 2Hr (0.5-2.0) mmol/L Calcium (8.4-10.2) mg/dL Magnesium (1.6-2.6) mg/dL Total Bilirubin (0.0-1.0) mg/dL Direct Bilirubin (0.0-0.5) mg/dL AST (5-37) U/L ALT (0-40) U/L Alkaline Phosphatase (39-117) U/L Total Creatine Kinase (38-174) U/L Troponin I High Sens 2007.4 H (<3.5-35.0) ng/L C-Reactive Protein (< or = 0.50) mg/dL B-Natriuretic Peptide 1045 H (<100) pg/mL Total Protein (6.5-8.0) g/dL Albumin (3.5-5.0) g/dL Lipase (8-78) U/L Procalcitonin ng/mL Urine Color Urine Appearance Urine pH (5.0-8.0) Ur Specific [place] (1.005-1.025) Urine Protein (NEG-TRACE) MG/DL Urine Glucose (UA) (NEG) MG/DL Urine Ketones (NEG) MG/DL Urine Blood (NEG) Urine Nitrite (NEG) Ur Leukocyte Esterase (NEG) Urine RBC (0) /HPF Urine WBC (0-4) /HPF Ur Squamous Epith Cells /LPF Urine Bacteria /LPF Hyaline Casts /LPF Granular Casts /LPF Acetone, Qual (Negative) Coronavirus (PCR) (Negative) Influenza Type A (PCR) (Negative) Influenza Type B (PCR) (Negative) RSV RNA Qual (PCR) (Negative) 06/11/20 06/11/20 06/11/20 Range/Units 16:31 16:48 16:48 WBC (4.8-10.8) X10*3/uL RBC (4.60-5.80) X10*6/uL Hgb (14.0-18.0) g/dl Hct (42-52) % MCV (80-98) fL MCH (27.0-33.0) pg MCHC (31.0-36.0) g/dl RDW (11.0-16.0) % Plt Count (160-400) X10*3/uL MPV (9.4-12.4) fL Immature Gran % (Auto) (0.0-0.4) % Neut % (Auto) (45-73) % Lymph % (Auto) (20-40) % [place] % (Auto) (2-11) % Eos % (Auto) (0-4) % Baso % (Auto) (0-2) % Lymph # (Auto) (1.2-4.9) X10*3/uL [place] # (Auto) (0.1-1.2) X10*3/uL Eos # (Auto) (0.0-0.4) X10*3/uL Baso # (Auto) (0.0-0.2) X10*3/uL Abs Immat Gran (auto) (0.00-0.03) X10*3/uL Absolute Neuts (auto) (2.0-8.3) X10*3/uL Absolute Nucleated RBC (0.0-0.012) X10*3/uL Nucleated RBC % (auto) (0.0-0.2) /100WBC PT (10.8-13.0) SEC INR (0.9-1.1) APTT (24.1-38.0) SEC Hold Blue Top VBG pH (7.32-7.43) VBG pCO2 mmHg VBG pO2 mmHg VBG HCO3 mmol/L VBG O2 Saturation % VBG Base Excess mmol/L Sodium (135-145) mmol/L Potassium (3.3-5.1) mmol/l Chloride (96-108) mmol/L Carbon Dioxide (22-29) mmol/L Anion Gap (12-20) BUN (9-16) mg/dL Creatinine (0.5-1.4) mg/dL Estim Creat Clear Calc Estimated GFR POC Glucose (60-115) mg/dL Random Glucose (60-115) mg/dL Lactic Acid (0.5-2.0) mmol/L Lactic Acid Fup @ 2Hr (0.5-2.0) mmol/L Calcium (8.4-10.2) mg/dL Magnesium (1.6-2.6) mg/dL Total Bilirubin (0.0-1.0) mg/dL Direct Bilirubin (0.0-0.5) mg/dL AST (5-37) U/L ALT (0-40) U/L Alkaline Phosphatase (39-117) U/L Total Creatine Kinase (38-174) U/L Troponin I High Sens (<3.5-35.0) ng/L C-Reactive Protein (< or = 0.50) mg/dL B-Natriuretic Peptide (<100) pg/mL Total Protein (6.5-8.0) g/dL Albumin (3.5-5.0) g/dL Lipase (8-78) U/L Procalcitonin 1.34 ng/mL Urine Color YELLOW Urine Appearance CLEAR Urine pH 5.5 (5.0-8.0) Ur Specific [place] 1.025 (1.005-1.025) Urine Protein 3+ H (NEG-TRACE) MG/DL Urine Glucose (UA) >=1000 H (NEG) MG/DL Urine Ketones 15 (NEG) MG/DL Urine Blood 2+ H (NEG) Urine Nitrite NEG (NEG) Ur Leukocyte Esterase NEG (NEG) Urine RBC 1-4 (0) /HPF Urine WBC 0-2 (0-4) /HPF Ur Squamous Epith Cells TRACE /LPF Urine Bacteria NONE /LPF Hyaline Casts 0-2 /LPF Granular Casts 0-2 /LPF Acetone, Qual (Negative) Coronavirus (PCR) NEGATIVE (Negative) Influenza Type A (PCR) NEGATIVE (Negative) Influenza Type B (PCR) NEGATIVE (Negative) RSV RNA Qual (PCR) NEGATIVE (Negative) 06/11/20 06/11/20 06/11/20 Range/Units 17:25 18:35 19:53 WBC (4.8-10.8) X10*3/uL RBC (4.60-5.80) X10*6/uL Hgb (14.0-18.0) g/dl Hct (42-52) % MCV (80-98) fL MCH (27.0-33.0) pg MCHC (31.0-36.0) g/dl RDW (11.0-16.0) % Plt Count (160-400) X10*3/uL MPV (9.4-12.4) fL Immature Gran % (Auto) (0.0-0.4) % Neut % (Auto) (45-73) % Lymph % (Auto) (20-40) % [place] % (Auto) (2-11) % Eos % (Auto) (0-4) % Baso % (Auto) (0-2) % Lymph # (Auto) (1.2-4.9) X10*3/uL [place] # (Auto) (0.1-1.2) X10*3/uL Eos # (Auto) (0.0-0.4) X10*3/uL Baso # (Auto) (0.0-0.2) X10*3/uL Abs Immat Gran (auto) (0.00-0.03) X10*3/uL Absolute Neuts (auto) (2.0-8.3) X10*3/uL Absolute Nucleated RBC (0.0-0.012) X10*3/uL Nucleated RBC % (auto) (0.0-0.2) /100WBC PT (10.8-13.0) SEC INR (0.9-1.1) APTT (24.1-38.0) SEC Hold Blue Top VBG pH (7.32-7.43) VBG pCO2 mmHg VBG pO2 mmHg VBG HCO3 mmol/L VBG O2 Saturation % VBG Base Excess mmol/L Sodium (135-145) mmol/L Potassium (3.3-5.1) mmol/l Chloride (96-108) mmol/L Carbon Dioxide (22-29) mmol/L Anion Gap (12-20) BUN (9-16) mg/dL Creatinine (0.5-1.4) mg/dL Estim Creat Clear Calc Estimated GFR POC Glucose 485 H* 467 H* (60-115) mg/dL Random Glucose (60-115) mg/dL Lactic Acid (0.5-2.0) mmol/L Lactic Acid Fup @ 2Hr 2.9 H* (0.5-2.0) mmol/L Calcium (8.4-10.2) mg/dL Magnesium (1.6-2.6) mg/dL Total Bilirubin (0.0-1.0) mg/dL Direct Bilirubin (0.0-0.5) mg/dL AST (5-37) U/L ALT (0-40) U/L Alkaline Phosphatase (39-117) U/L Total Creatine Kinase (38-174) U/L Troponin I High Sens (<3.5-35.0) ng/L C-Reactive Protein (< or = 0.50) mg/dL B-Natriuretic Peptide (<100) pg/mL Total Protein (6.5-8.0) g/dL Albumin (3.5-5.0) g/dL Lipase (8-78) U/L Procalcitonin ng/mL Urine Color Urine Appearance Urine pH (5.0-8.0) Ur Specific [place] (1.005-1.025) Urine Protein (NEG-TRACE) MG/DL Urine Glucose (UA) (NEG) MG/DL Urine Ketones (NEG) MG/DL Urine Blood (NEG) Urine Nitrite (NEG) Ur Leukocyte Esterase (NEG) Urine RBC (0) /HPF Urine WBC (0-4) /HPF Ur Squamous Epith Cells /LPF Urine Bacteria /LPF Hyaline Casts /LPF Granular Casts /LPF Acetone, Qual (Negative) Coronavirus (PCR) (Negative) Influenza Type A (PCR) (Negative) Influenza Type B (PCR) (Negative) RSV RNA Qual (PCR) (Negative) 06/11/20 06/11/20 06/11/20 Range/Units 19:53 19:53 22:21 WBC (4.8-10.8) X10*3/uL RBC (4.60-5.80) X10*6/uL Hgb (14.0-18.0) g/dl Hct (42-52) % MCV (80-98) fL MCH (27.0-33.0) pg MCHC (31.0-36.0) g/dl RDW (11.0-16.0) % Plt Count (160-400) X10*3/uL MPV (9.4-12.4) fL Immature Gran % (Auto) (0.0-0.4) % Neut % (Auto) (45-73) % Lymph % (Auto) (20-40) % [place] % (Auto) (2-11) % Eos % (Auto) (0-4) % Baso % (Auto) (0-2) % Lymph # (Auto) (1.2-4.9) X10*3/uL [place] # (Auto) (0.1-1.2) X10*3/uL Eos # (Auto) (0.0-0.4) X10*3/uL Baso # (Auto) (0.0-0.2) X10*3/uL Abs Immat Gran (auto) (0.00-0.03) X10*3/uL Absolute Neuts (auto) (2.0-8.3) X10*3/uL Absolute Nucleated RBC (0.0-0.012) X10*3/uL Nucleated RBC % (auto) (0.0-0.2) /100WBC PT (10.8-13.0) SEC INR (0.9-1.1) APTT (24.1-38.0) SEC Hold Blue Top VBG pH (7.32-7.43) VBG pCO2 mmHg VBG pO2 mmHg VBG HCO3 mmol/L VBG O2 Saturation % VBG Base Excess mmol/L Sodium 136 (135-145) mmol/L Potassium 4.0 (3.3-5.1) mmol/l Chloride 97 (96-108) mmol/L Carbon Dioxide 24 (22-29) mmol/L Anion Gap 19 (12-20) BUN 36 H (9-16) mg/dL Creatinine 2.32 H (0.5-1.4) mg/dL Estim Creat Clear Calc 47.9 Estimated GFR 31 POC Glucose 409 H* (60-115) mg/dL Random Glucose 457 H* (60-115) mg/dL Lactic Acid (0.5-2.0) mmol/L Lactic Acid Fup @ 2Hr (0.5-2.0) mmol/L Calcium 7.4 L D (8.4-10.2) mg/dL Magnesium (1.6-2.6) mg/dL Total Bilirubin (0.0-1.0) mg/dL Direct Bilirubin (0.0-0.5) mg/dL AST (5-37) U/L ALT (0-40) U/L Alkaline Phosphatase (39-117) U/L Total Creatine Kinase 135 (38-174) U/L Troponin I High Sens 2322.8 H (<3.5-35.0) ng/L C-Reactive Protein (< or = 0.50) mg/dL B-Natriuretic Peptide (<100) pg/mL Total Protein (6.5-8.0) g/dL Albumin (3.5-5.0) g/dL Lipase (8-78) U/L Procalcitonin ng/mL Urine Color Urine Appearance Urine pH (5.0-8.0) Ur Specific [place] (1.005-1.025) Urine Protein (NEG-TRACE) MG/DL Urine Glucose (UA) (NEG) MG/DL Urine Ketones (NEG) MG/DL Urine Blood (NEG) Urine Nitrite (NEG) Ur Leukocyte Esterase (NEG) Urine RBC (0) /HPF Urine WBC (0-4) /HPF Ur Squamous Epith Cells /LPF Urine Bacteria /LPF Hyaline Casts /LPF Granular Casts /LPF Acetone, Qual (Negative) Coronavirus (PCR) (Negative) Influenza Type A (PCR) (Negative) Influenza Type B (PCR) (Negative) RSV RNA Qual (PCR) (Negative) <Nissa Donis MD - Last Filed: 06/11/20 22:37> ECG Data Attestation: I personally reviewed and interpreted this ECG as follows: <JAVIER Hernandez - Last Filed: 06/11/20 19:55> ECG interpretation date: 06/11/20 <JAVIER Hernandez - Last Filed: 06/11/20 19:55> ECG interpretation time: 16:08 <JAVIER Hernandez - Last Filed: 06/11/20 19:55> Prior ECG tracings: available for review <JAVIER Hernandez - Last Filed: 06/11/20 19:55> Interpretation: sinus tachycardia, HR 109, prolonged QTc 503 ms, ST depression in V4-V6 which are new from prior in Jan 2020, possible slight ST elevation in aVR and V1 19:17 2nd EKG - sinus tachycardia, HR 102, QTc 508 ms, ST depressions in V4-V6 persist, similar appearance of aVR and V1 as well. <JAVIER Hernandez - Last Filed: 06/11/20 19:55> Critical Care Time Critical Care Time Critical Care Time: Yes <JAVIER Hernandez Last Filed: 06/11/20 19:55> Total Critical Care Time: 70 <JAVIER Hernandez - Last Filed: 06/11/20 19:55> Attestation: I attest to critical care time spent caring for this critically ill patient with multiple life threatening diagnoses. Time spent at the bedside for frequent re-evaluations of respiratory and hemodynamic status as well as review of records and coordinating care with the Senior [employer] and [employer]. <JAVIER Hernandez - Last Filed: 06/11/20 19:55> Discharge Plan Discharge Clinical Impression: Non-ST elevation PA (NSTEMI), Acute respiratory failure with hypoxia, Acute kidney injury superimposed on chronic kidney disease Bilateral pneumonia Qualifiers: Pneumonia type: aspiration pneumonia Aspiration pneumonia type: unspecified Lung location: unspecified part of lung Qualified Code(s): J69.0 - Pneumonitis due to inhalation of food and vomit DKA (diabetic ketoacidoses) Qualifiers: Diabetes mellitus type: type 2 Diabetes mellitus complication detail: without coma Qualified Code(s): E11.10 - Type 2 diabetes mellitus with ketoacidosis without coma <JAVIER Hernandez - Last Filed: 06/11/20 19:55> Patient Disposition: [facility] <JAVIER Hernandez - Last Filed: 06/11/20 19:55> Prescriptions: No Action hydrochlorothiazide 25 mg tablet 25 mg PO DAILY Qty: 90 RF: 8 carvedilol 12.5 mg tablet 12.5 mg PO BID Qty: 180 RF: 8 cyclobenzaprine 5 mg tablet 5 mg PO TID PRN (Reason: muscle spasm) Qty: 60 RF: 6 zolpidem 10 mg Tablet 10 mg PO BEDTIME RF: 0 Humulin R U-500 (Conc) Kwikpen 500 unit/mL (3 mL) Insulin Pen 180 unit SUBCUT BEDTIME RF: 0 Humulin R U-500 (Conc) Kwikpen 500 unit/mL (3 mL) Insulin Pen 210 unit SUBCUT DAILY RF: 0 sumatriptan succinate 50 mg tablet 50 mg PO DAILY PRN (Reason: Migraine Headache) RF: 0 gabapentin 600 mg tablet 600 mg PO TID RF: 0 (DME) pen needle, diabetic 32 gauge x 5/32 needle See Rx Instructions ea subcut .MEDSUPPLY Qty: 50 RF: 0 duloxetine 30 mg capsule,delayed release(DR/EC) 30 mg PO DAILY RF: 0 fenofibrate nanocrystallized 145 mg tablet 145 mg PO DAILY RF: 0 atorvastatin 40 mg tablet 40 mg PO DAILY RF: 0 oxycodone 5 mg tablet 5 mg PO Q6H PRN (Reason: pain) Qty: 120 RF: 0 <JAVIER Hernandez - Last Filed: 06/11/20 19:55>
--- NOTE | 2020-06-11 15:30 | CT_ITS ---
EXAMINATION: CHEST, ABDOMEN AND PELVIS CT WITHOUT IV CONTRAST CLINICAL INFORMATION: Hypoxia. Abdominal pain. COMPARISON: Previous chest CT most recent January 2020 and abdominal and pelvic CT scan most recent August 2017 TECHNIQUE: Axial images through the chest without contrast and axial images through the abdomen and pelvis without IV and following oral contrast. Sagittal and coronal reconstructions on the technologist workstation were performed. Patient dose 278+7 5 7 mg/cm. FINDINGS: Chest: There is dense left upper lobe airspace disease with air bronchograms suggestive of pneumonia. There are multiple mixed semisolid and groundglass attenuation nodular opacities in the left lower lobe. Some of these appear peribronchial and may be associated with bronchial wall thickening. There is mixed groundglass and denser nodular opacities in the right upper lobe. These appear peribronchial in distribution as well. There is scattered small groundglass attenuation opacities in the right middle lobe and right lower lobes and some anterior lobular septal thickening. There are small bilateral calcified pulmonary nodules, largest measuring 4 x 5 mm in the right lower lobe. There is shotty mediastinal lymphadenopathy. Evaluation for hilar adenopathy is limited without IV contrast. There may be small hilar lymph nodes as well. The heart is upper normal in size. There is no pericardial effusion. There is mild coronary artery calcification. There is no pleural effusion or pleural thickening. No chest wall mass or enlarged axillary lymph nodes are seen. Abdomen and pelvis: The liver is enlarged and low in attenuation suggestive of fatty infiltration. No focal liver lesion is seen. The gallbladder is unremarkable. There is no biliary duct dilatation. The spleen is unremarkable. The pancreas is unremarkable. The adrenal glands and kidneys are unremarkable. Bladder is well-distended but otherwise unremarkable. The prostate gland does not appear enlarged. Small and large bowel is unremarkable. The appendix is unremarkable. The stomach is filled with food. Vascular structures are unremarkable. No ascites or adenopathy is seen. Review of bone windows demonstrates mild degenerative changes of the spine. CT/CT abdomen pelvis wo con IMPRESSION: Chest: Bilateral multilobar pneumonia. Appearance is atypical for Covid infection. Abdomen and pelvis: Enlarged fatty liver.
[2020-06-11] MEDS: 0.9 % Sodium Chloride 1,000 ML 999 ML IVCONT (16:35)
[2020-06-11] MEDS: Piperacillin Sodium/Tazobactam 3.375 GM in 0.9 % Sodium Chloride 50 ML IV (16:36)
[2020-06-11] MEDS: Insulin Lispro 100 UNIT/ML 3 ML VIAL 12 UNIT SUBCUT (16:36)
[2020-06-11 16:40] VITALS: PULSE 107; RESP 26; TEMP 36.9; O2SAT 91
[2020-06-11 16:42] LABS: MANUAL DIFF FLAG NO
[2020-06-11 16:45] LABS: Basophils Absolute Auto 0.1 X10*3/uL (0.0-0.2); Basophils Percent Auto 0.4 % (0-2); Hematocrit 38.8 % (42-52); Hemoglobin 12.9 g/dl (14.0-18.0); Imm Gran Abs Auto 0.17 X10*3/uL (0.00-0.03); Imm Gran Pct Auto 1.2 % (0.0-0.4); Lymphocytes Absolute Auto 1.4 X10*3/uL (1.2-4.9); Lymphocytes Percent Auto 9.6 % (20-40); Mean Corpuscular HGB Conc 33.2 g/dl (31.0-36.0); Mean Corpuscular Hemoglobin 28.5 pg (27.0-33.0); Mean Corpuscular Volume 85.7 fL (80-98); Mean Platelet Volume 10.4 fL (9.4-12.4); Monocytes Absolute Auto 0.7 X10*3/uL (0.1-1.2); Monocytes Percent Auto 4.9 % (2-11); Neutrophils Absolute Auto 11.9 X10*3/uL (2.0-8.3); Neutrophils Percent Auto 83.9 % (45-73); Platelet Count 274 X10*3/uL (160-400); Red Blood Count 4.53 X10*6/uL (4.60-5.80); Red Cell Distribution Width 14.1 % (11.0-16.0); White Blood Count 14.2 X10*3/uL (4.8-10.8)
[2020-06-11 16:47] LABS: Base Excess VBG -2.9 mmol/L; HCO3 VBG 22 mmol/L; PCO2 VBG 42 mmHg; PO2 VBG 45 mmHg; pH VBG 7.33 (7.32-7.43)
[2020-06-11 16:58] LABS: Acetone, serum QL Small (Negative)
[2020-06-11 16:58] LABS: Glucose Urine UA >=1000 MG/DL (NEG); Leukocyte Esterase Urine NEG (NEG); Nitrite Urine NEG (NEG); PH 5.5 (5.0-8.0); Specific Gravity - Urine 1.025 (1.005-1.025); Urine Blood 2+ (NEG); Urine Ketones 15 MG/DL (NEG); Urine Protein 3+ MG/DL (NEG-TRACE)
[2020-06-11 17:00] LABS: Appearance Urine CLEAR; Color Urine YELLOW
[2020-06-11 17:11] LABS: Alanine Aminotransferase 26 U/L (0-40); Albumin Level 3.8 g/dL (3.5-5.0); Alkaline Phosphatase 85 U/L (39-117); Anion Gap 25 (12-20); Aspartate Amino Transferase 23 U/L (5-37); B Type Natriuretic Peptide 1045 pg/mL (<100); Bilirubin Direct 0.3 mg/dL (0.0-0.5); Bilirubin Total 0.6 mg/dL (0.0-1.0); Blood Urea Nitrogen 38 mg/dL (9-16); C Reactive Protein 25.46 mg/dL (< or = 0.50); Carbon Dioxide 20 mmol/L (22-29); Chloride 94 mmol/L (96-108); Creatinine Clr Calc Pharmacy 44.4; Estimated Glomerular Filt Rate 28; Glucose Random 624 mg/dL (60-115); Lactic Acid 2.9 mmol/L (0.5-2.0); Lipase 7 U/L (8-78); Magnesium 1.6 mg/dL (1.6-2.6); Potassium 4.6 mmol/l (3.3-5.1); Sodium 134 mmol/L (135-145); Total Protein 6.3 g/dL (6.5-8.0)
[2020-06-11 17:12] LABS: Troponin-I High Sensitivity 2007.4 ng/L (<3.5-35.0)
[2020-06-11 17:20] LABS: Granular Casts Urine 0-2 /LPF; Hyaline Casts Urine 0-2 /LPF; Squamous Epithelial Cell Urine TRACE /LPF; WBC Urine 0-2 /HPF (0-4)
[2020-06-11 17:25] LABS: Procalcitonin 1.34 ng/mL
[2020-06-11 17:31] LABS: Glucose, Whole Blood 485 mg/dL (60-115)
[2020-06-11 18:00] VITALS: BP 190/104; PULSE 116
[2020-06-11] MEDS: Metoprolol Tartrate 5 MG/5 ML VIAL IVPUSH (18:00)
[2020-06-11 18:01] LABS: INTERNATIONAL NORM RATIO 1.1 (0.9-1.1); Prothrombin Time 13.5 SEC (10.8-13.0)
[2020-06-11 18:03] LABS: Partial Thromboplastin Time 35.6 SEC (24.1-38.0)
[2020-06-11] MEDS: vancomycin HCL 1,000 MG in 0.9 % Sodium Chloride 250 ML 270 MG IV (18:05)
[2020-06-11] MEDS: Heparin Sodium,Porcine 5,000 UNIT/ML VIAL 3265.88 UNIT IVPUSH (18:06)
[2020-06-11 18:09] LABS: Influenza A PCR NEGATIVE (Negative); Influenza B PCR NEGATIVE (Negative); Resp Syncy Virus RNA Qual PCR NEGATIVE (Negative); SARS COV2 PCR INHOUSE NEGATIVE (Negative)
[2020-06-11] MEDS: Aspirin 325 MG TABLET PO (18:19)
[2020-06-11] MEDS: Heparin Sodium,Porcine/1/2NS 25,000 UNIT/250 ML IV.SOLN 9.8 UNIT IVCONT (18:27)
--- NOTE | 2020-06-11 18:34 | P.CONCC_ITS ---
History of Present Illness Data of Consult Service Date: 06/11/20 Primary Care Provider: Karan Waldrno MD HPI Reason for consult: troponin elevation 44 yo male s/p hypersensitivity pneumonitis 4 months ago presents with mild DKA and troponin elevation to [address]-T changes in anterolateral distribution and he is a known periph vasculopath with Right BKA bedside echo with LVH and no WMA, but cannot see the lateral wall Chest CT c/w pulmonary edema Also he developed acute on chronic stage IV renal failure with previous creatinine of 1.7 currently at 2.35 and mild negative base excess probably refle cting combination of his renal insufficiency and a mild diabetic ketoacidosis Review of Systems Review of Systems: In he did note that he had had some nausea vomiting and diminished p.o. intake leading up to this presentation Yes all other systems are reviewed and are negative [facility] Past Medical History Medical History (Updated 08/24/21 @ 09:36 by Baldomero Multani MD) Chronic pain CKD (chronic kidney disease) HTN (hypertension) IDDM (insulin dependent diabetes mellitus) Osteomyelitis PVD (peripheral vascular disease) Type 2 diabetes mellitus Family History Family History Father Diabetes Mother Diabetes Surgical History Surgical History (Reviewed 06/10/20 @ 10:30 by Carina Perez [facility]) Status post below knee amputation of right lower extremity Status post laser cataract surgery of right eye Social History Social History Alcohol intake: never Meds Allergies Allergy/AdvReac Type Severity Reaction Status Date / Time levofloxacin [From LEVAQUIN] Allergy Unknown REDNESS,ITC Verified 06/10/20 10:30 HY,SWOLLEN Home Medications Medication Instructions Recorded Confirmed Type gabapentin 600 mg tablet 600 mg PO TID tab 02/26/20 06/11/20 History pen needle, diabetic 32 gauge x #50 ea 02/26/20 06/10/20 History sumatriptan succinate 50 mg tablet 50 mg PO DAILY PRN tab 02/26/20 06/11/20 Hi story atorvastatin 40 mg tablet 40 mg PO DAILY 06/10/20 06/11/20 History duloxetine 30 mg capsule,delayed 30 mg PO DAILY 06/10/20 06/11/20 History release fenofibrate nanocrystallized 145 145 mg PO DAILY 06/10/20 06/11/20 History mg tablet insulin regular hum U-500 conc 180 unit SUBCUT BEDTIME 06/11/20 06/11/20 History (Humulin R U-500 (Conc) Insulin Kwikpen) insulin regular hum U-500 conc 210 unit SUBCUT DAILY 06/11/20 06/11/20 History (Humulin R U-500 (Conc) Insulin Kwikpen) zolpidem 10 mg tablet 10 mg PO BEDTIME 06/11/20 06/11/20 History Physical Exam Vital Signs: Vital Signs: Last Vital Signs Temp 98.5 F 06/11/20 16:40 Pulse 116 H 06/11/20 18:00 Resp 26 H 06/11/20 16:40 BP 190/104 H 06/11/20 18:00 Pulse Ox 91 L 06/11/20 16:40 Body Mass Index 22.5 He was awake and and oriented and answering questions was nonfocal neurologically and has his right be KA from peripheral vascular disease Abdomen benign no organomegaly Lungs clearly a course trials on the left side but no other adventitious sounds no diaphragmatic effort Cardiac exam by bedside echo in the face of hypertension and good bilateral carotid upstrokes indicating concentric hypertrophy no apparent wall motion abnormality nor primary valve or pericardial disease but unable to visualize the lateral wall No acrocyanosis Results Labs CBC & Chem 7: 06/11/20 16:31 06/11/20 19:53 Labs: Short CBC 06/11/20 Range/Units 16:31 WBC 14.2 H (4.8-10.8) X10*3/uL Hgb 12.9 L (14.0-18.0) g/dl Hct 38.8 L (42-52) % Plt Count 274 (160-400) X10*3/uL BMP 06/11/20 16:31 Sodium 134 L Potassium 4.6 Chloride 94 L Carbon Dioxide 20 L BUN 38 H Creatinine 2.50 H Calcium 8.0 L Liver Function 06/11/20 Range/Units 16:31 Total Bilirubin 0.6 (0.0-1.0) mg/dL Direct Bilirubin 0.3 (0.0-0.5) mg/dL AST 23 (5-37) U/L ALT 26 (0-40) U/L Alkaline Phosphatase 85 (39-117) U/L Albumin 3.8 (3.5-5.0) g/dL Urine 06/11/20 Range/Units 16:48 Urine Color YELLOW Urine Appearance CLEAR Urine pH 5.5 (5.0-8.0) Ur Specific [place] 1.025 (1.005-1.025) Urine Protein 3+ H (NEG-TRACE) MG/DL Urine Glucose (UA) >=1000 H (NEG) MG/DL Assessment and Plan (1) Chronic pain: Status: Acute (2) CKD (chronic kidney disease): Status: Acute (3) PVD (peripheral vascular disease): Status: Acute (4) HTN (hypertension): Status: Acute (5) Kidney injury: Problem details: 15 min on telephone Status: Acute (6) Back pain: Problem details: cont same meds; has a BKAand needs a new prosthesis because he fell and broke his; 20 min reviewing chaft, evaluating patient and documenting Status: Acute (7) Type 2 diabetes mellitus: Status: Acute (8) Acute myocardial infarction: Status: Acute (9) Pulmonary edema cardiac cause: Status: Acute (10) Metabolic acidosis: Status: Acute With elevated troponin of 2000 and what appears to be pulmonary edema by chest CT scan causing his acute hypoxic respiratory failure and being a known peripheral vascular path with diabetes hypertension and hyperlipidemia this is clearly an acute infarct in evolution needs to be transfer to tertiary facility for cardiac catheterization
[2020-06-11 18:39] LABS: Glucose, Whole Blood 467 mg/dL (60-115)
[2020-06-11 18:40] LABS: Reflex Lactate? Lactic Acid Added
--- NOTE | 2020-06-11 19:05 | ECG_ITS ---
Test Reason : REPEAT Blood Pressure : / mmHG Vent. Rate : 102 BPM Atrial Rate : 102 BPM P-R Int : 126 ms QRS Dur : 080 ms QT Int : 390 ms P-R-T Axes : 036 039 186 degrees QTc Int : [address] & T wave abnormality, consider lateral ischemia Abnormal ECG When compared with ECG of 11-JUN-2020 15:54, No significant change was found Referred By: Deena Hamilton Electronically Signed By:CATALINO MILLER
--- NOTE | 2020-06-11 19:13 | PC.NURSE ---
Pt's sister Gurdeep would like a call with updates [phone]
[2020-06-11] MEDS: Insulin Lispro 100 UNIT/ML 3 ML VIAL 8 UNIT SUBCUT (19:35)
[2020-06-11 19:37] VITALS: BP 155/76
[2020-06-11 20:35] LABS: ~Lactic Acid-LAB USE ONLY 2.9 mmol/L (0.5-2.0)
[2020-06-11 20:51] LABS: Anion Gap 19 (12-20); Blood Urea Nitrogen 36 mg/dL (9-16); Calcium 7.4 mg/dL (8.4-10.2); Carbon Dioxide 24 mmol/L (22-29); Chloride 97 mmol/L (96-108); Creatinine Clr Calc Pharmacy 47.9; Estimated Glomerular Filt Rate 31; Glucose Random 457 mg/dL (60-115); Sodium 136 mmol/L (135-145)
[2020-06-11 21:57] LABS: Reflex Lactate? 2 Y
[2020-06-11 22:25] LABS: Glucose, Whole Blood 409 mg/dL (60-115)
[2020-06-11] MEDS: 0.9 % Sodium Chloride 2,449.41 ML 2449.41 ML IVCONT (22:32)
[2020-06-11] MEDS: Insulin Regular/NS 100 UNIT/100 ML PLAST..BAG IVCONT (22:44)
== END 2020-06-11 23:16 | disposition short-term general hospital (02) ==
PROVIDERS: Physician Assistant; Emergency Provider Internal Medicine; PCP Internal Medicine
DX: I21.3 ST elevation (STEMI) myocardial infarction of unspecified site (principal); J96.01 Acute respiratory failure with hypoxia; J69.0 Pneumonitis due to inhalation of food and vomit; E11.10 Type 2 diabetes mellitus with ketoacidosis without coma; E11.65 Type 2 diabetes mellitus with hyperglycemia; R00.0 Tachycardia, unspecified; E11.22 Type 2 diabetes mellitus with diabetic chronic kidney disease; I12.9 Hypertensive chronic kidney disease with stage 1 through stage 4 chronic kidney disease, or unspecified chronic kidney disease; N18.9 Chronic kidney disease, unspecified; Z20.822 Contact with and (suspected) exposure to COVID-19; G89.29 Other chronic pain; Z79.891 Long term (current) use of opiate analgesic; Z79.4 Long term (current) use of insulin; Z79.899 Other long term (current) drug therapy; Z91.14 Patient's other noncompliance with medication regimen; Z89.511 Acquired absence of right leg below knee
CPT/HCPCS: 0241U; 36415; 70450; 71045; 71250; 74176; 80048; 80076; 81001; 82009; 82550; 82803; 82947; 83605; 83690; 83735; 83880; 84145; 84484; 85025; 85610; 85730; 86140; 87040; 93005; 96361; 96365; 96366; 96367; 96375; 99285; 99291; J2543; J3370